=== PATIENT | male | born 1960 | race Caucasian/White ===

== ENCOUNTER 2020-03-07 07:36 | Outpatient (CLI) | payer OTHER ==
[2020-03-07 08:07] LABS: CHOL/HDL RATIO 3.1 (<5.0); CHOLESTEROL 193 mg/dL; HDL CHOLESTEROL 62 mg/dL; LDL CHOLESTEROL,CALCULATED 111 mg/dL; LDL/HDL RATIO 1.8 (<3.6); VLDL CHOLESTEROL 20 mg/dL
== END 2020-03-07 07:37 | disposition home or self-care (01) ==
LOC: LAB 07:36
PROVIDERS: ATTEND Family Medicine
DX: C18.6 Malignant neoplasm of descending colon (principal); C61 Malignant neoplasm of prostate; J84.9 Interstitial pulmonary disease, unspecified; Z79.899 Other long term (current) drug therapy
CPT/HCPCS: 36415; 80061; 83721; 84443